=== PATIENT | female | born 1975 | race Two or more races ===

== ENCOUNTER 2020-08-29 14:51 | Emergency (ER) | payer OTHER ==
[~2020-08-29] VITALS: Ht 160 cm; Wt 97.1 kg
[2020-08-29 14:55] VITALS: BP 148/93
[2020-08-29 16:05] LABS: Basophils # (auto) 0.1 10 ^3/uL (0-0.2); Basophils % (auto) 0.9 % (0.0-2.0); Eosinophils # (auto) 0.1 10 ^3/uL (0-0.8); Eosinophils % (auto) 0.8 % (0.0-7.0); Hematocrit 41.4 % (36.0-46.0); Hemoglobin 14.4 g/dL (12.2-16.2); Lymphocytes # (auto) 3.2 10 ^3/uL (0.4-5.4); Lymphocytes % (auto) 37.5 % (10.0-50.0); Mean Corpuscular Hemoglobin 31.5 pg (28.0-32.0); Mean Corpuscular Hgb Conc. 34.7 g/dL (32.0-36.0); Mean Corpuscular Volume 90.6 fL (80.0-100.0); Monocytes # (auto) 0.8 10 ^3/uL (0-1.3); Monocytes % (auto) 9.1 % (0.0-12.0); Neutrophils # (auto) 4.4 10 ^3/uL (1.6-8.6); Neutrophils % (auto) 51.7 % (37.0-80.0); Platelet Count (auto) 228 10^3/uL (140-450); Red Blood Cells 4.57 10^6/uL (4.0-5.20); Red Cell Distribution Width 13.3 % (11.8-14.3); White Blood Cell 8.5 10^3/uL (4.4-10.8)
[2020-08-29 16:27] LABS: Calcium 8.8 mg/dL (8.5-10.1); Chloride 103 mmol/L (98-107); Potassium 4.1 mmol/L (3.5-5.1); Sodium 138 mmol/L (136-145)
[2020-08-29 16:35] LABS: Alanine Aminotransferase 57 U/L (13-56); Albumin 3.5 g/dL (3.4-5.0); Alkaline Phosphatase 80 U/L (45-117); Anion Gap 10 (5-15); Aspartate Aminotransferase 37 U/L (15-37); BUN/Creatinine Ratio 19.2; Bilirubin, Total 0.5 mg/dL (0.2-1.0); Blood Urea Nitrogen 14 mg/dL (7-18); Carbon Dioxide 25 mmol/L (21-32); GFR African American 112 mL/min; GFR Non-African American 92 mL/min; Glucose 151 mg/dL (74-106); Total Protein 7.7 g/dL (6.4-8.2)
[2020-08-29] MEDS ORDERED: ACETAMINOPHEN 500 MG TAB PO ONE ×2 (17:40→17:45)
[2020-08-29] MEDS ORDERED: ASPirin 81 mg TAB PO ONE (21:15)
[2020-08-29 22:34] LABS: INR 1.01 (0.9-1.15); Partial Thromboplastin Time 25.6 sec (23.0-31.2)
== END 2020-08-29 23:28 | disposition home or self-care (01) ==
LOC: ER 14:53
DX: R07.89 Other chest pain (principal); G47.30 Sleep apnea, unspecified; R00.1 Bradycardia, unspecified; Z95.0 Presence of cardiac pacemaker
CPT/HCPCS: 36415; 71045; 80053; 83735; 83880; 84443; 84484; 85025; 85379; 85610; 85730; 93005